=== PATIENT | female | born 1995 | race Caucasian/White ===

== ENCOUNTER 2020-11-25 05:50 | Day surgery (SDC) | payer OTHER ==
[2020-11-23 10:11] LABS: BASOPHILS % (AUTO) 0.4 % (0.0-5.0); EOSINOPHILS % (AUTO) 1.4 % (0.0-8.0); HEMATOCRIT 43.8 % (36-48); MEAN CORPUSCULAR HEMOGLOBIN 32.1 pg (27.0-33.0); MEAN CORPUSCULAR HGB CONC 33.3 g/dL (32.0-36.0); MEAN CORPUSCULAR VOLUME 96.3 fL (79-99); MONOCYTES % (AUTO) 9.9 % (3.0-13.0); NEUTROPHILS % (AUTO) 65.2 % (40.0-77.0); PLATELET COUNT (AUTO) 300 K/uL (130-400); RED BLOOD CELL COUNT(AUTO) 4.55 MIL/uL (4.00-5.50)
[2020-11-23 10:22] LABS: POTASSIUM 4.4 mmol/L (3.5-5.1)
[2020-11-24 11:03] VITALS: BP 125/67
[2020-11-25] VITALS (19 sets, daily range): BP systolic 114–134; BP diastolic 62–78
[~2020-11-25] VITALS: Ht 168.9 cm; Wt 76.8 kg
[2020-11-25] MEDS ORDERED: LACTATED RINGERS 1000ML 1,000 ML IV ONE (07:24)
[2020-11-25] MEDS: CEFAZOLIN SODIUM 1 GM VIAL IVP ONE ×2 (07:28→09:02)
[2020-11-25] MEDS ORDERED: ROPIVACAINE 0.5% 5MG/ML 30ML IJ ONE (08:01)
[2020-11-25] MEDS ORDERED: DEXAMETHASONE SOD PHOSPHATE 10MG/ML 1ML VIAL ONE (08:02)
[2020-11-25] MEDS ORDERED: ONDANSETRON HCL 4 MG/2 ML VIAL ONE (08:02)
[2020-11-25] MEDS ORDERED: SUCCINYLCHOLINE CHLORIDE 20 MG/ML 10 ML VIAL ONE (08:02)
[2020-11-25] MEDS ORDERED: LIDOCAINE PF 2% 5ML ABBOJECT ONE (08:02)
[2020-11-25] MEDS ORDERED: GLYCOPYRROLATE 1 MG/5 ML SYRINGE ONE (08:03)
[2020-11-25] MEDS ORDERED: PROPOFOL 10 MG/ML 20ML VIAL IV ONE (08:03)
[2020-11-25] MEDS ORDERED: NEOSTIGMINE 5MG/5ML SYR IV ONE (08:03)
[2020-11-25] MEDS ORDERED: FENTANYL CITRATE PF 50 MCG/1 ML 2ML VIAL ONE ×2 (08:03→09:29)
[2020-11-25] MEDS ORDERED: MIDAZOLAM HCL 1 MG/ML 2ML VIAL ONE (08:04)
[2020-11-25] MEDS ORDERED: ROCURONIUM 10MG/1ML SYR 10 MG/ML ML ONE (08:04)
[2020-11-25] MEDS ORDERED: CEFAZOLIN SODIUM 1 GM VIAL ONE (08:10)
[2020-11-25] MEDS ORDERED: IBUP-2077 PO (10:45)
[2020-11-25] MEDS ORDERED: CEPH500B PO (10:45)
[2020-11-25] MEDS ORDERED: HYDR-4060 PO ×3 (10:45→12:59)
[2020-11-25] MEDS ORDERED: MEPERIDINE-PF 25 MG/ML SYG ONE ×2 (11:03→11:21)
[2020-11-25] MEDS ORDERED: KETOROLAC TROMETHAMINE 30MG/ML ONE (11:03)
== END 2020-11-25 13:05 | disposition home or self-care (01) ==
LOC: DAH 05:50
PROVIDERS: ATTEND Orthopaedic Surgery
DX: S83.511A Sprain of anterior cruciate ligament of right knee, initial encounter (principal); Z20.822 Contact with and (suspected) exposure to COVID-19; M23.91 Unspecified internal derangement of right knee; M25.361 Other instability, right knee; F17.200 Nicotine dependence, unspecified, uncomplicated; Z80.9 Family history of malignant neoplasm, unspecified; Z82.3 Family history of stroke; Z79.899 Other long term (current) drug therapy; Z72.89 Other problems related to lifestyle; X58.XXXA Exposure to other specified factors, initial encounter; Y93.68 Activity, volleyball (beach) (court); Y92.89 Other specified places as the place of occurrence of the external cause
CPT/HCPCS: 29888; 36415; 64447; 76942; 80048; 84703; 85025; A4215; A4221; A4222; A4223; A4649 ×5; A4663; A4930 ×2; A6223; C1713; C1762; C1776; C9803; G0168; J0330; J0690 ×2; J1100; J1885; J2001; J2175 ×2; J2250; J2405; J2704; J2710; J2795; J3010 ×2; J3490; J7120 ×2; U0003